=== PATIENT | female | born 1990 | race Caucasian/White ===

== ENCOUNTER 2023-04-21 18:09 | Emergency (ER) | payer BC ==
[2023-04-21] MEDS ORDERED: EPINEPHrine 1 MG/ML AMP ONE (20:10)
[2023-04-21] MEDS ORDERED: methylPREDNISolone Sod Succ/PF 125 MG/2 ML VIAL ONE (20:24)
[2023-04-21] MEDS ORDERED: diphenhydrAMINE 25 MG CAP ONE (20:24)
[2023-04-21] MEDS ORDERED: Famotidine 20 MG TAB ONE (20:26)
== END 2023-04-21 21:00 | disposition home or self-care (01) ==
LOC: CSHERS 18:09
DX: T78.40XA Allergy, unspecified, initial encounter (principal); T63.461A Toxic effect of venom of wasps, accidental (unintentional), initial encounter
CPT/HCPCS: 96372; 99283; J0171; J2930